=== PATIENT | male | born 1995 | race Two or more races ===

== ENCOUNTER 2018-11-09 14:42 | Emergency (ER) | payer MEDICAID, OTHER ==
[~2018-11-09] VITALS: Ht 167.6 cm; Wt 97.5 kg
[2018-11-09 15:25] VITALS: BP 120/64
[2018-11-09] MEDS ORDERED: IBUPROFEN 800 MG TAB PO ONE (16:00)
== END 2018-11-09 16:29 | disposition home or self-care (01) ==
LOC: ER 14:42
DX: S20.211A Contusion of right front wall of thorax, initial encounter (principal); S60.221A Contusion of right hand, initial encounter; S39.012A Strain of muscle, fascia and tendon of lower back, initial encounter; V49.59XA Passenger injured in collision with other motor vehicles in traffic accident, initial encounter; Y93.89 Activity, other specified; Y99.8 Other external cause status; Y92.410 Unspecified street and highway as the place of occurrence of the external cause
CPT/HCPCS: 71046; 73130